=== PATIENT | male | born 1990 | race Caucasian/White ===

== ENCOUNTER 2021-06-29 20:43 | Emergency (ER) | payer OTHER ==
[~2021-06-29] VITALS: Ht 180.3 cm; Wt 140.6 kg
[2021-06-29 20:50] VITALS: BP_SYST 139
[2021-06-29] MEDS ORDERED: IBUP-1969 PO ×2 (22:48)
[2021-06-29] MEDS ORDERED: HYDR-3927 PO ×2 (22:48)
[2021-06-29 23:00] VITALS: BP_SYST 136
[2021-06-30] MEDS ORDERED: HYDR-3927 PO (11:10)
[2021-06-30] MEDS ORDERED: IBUP-1969 PO (11:10)
== END 2021-06-29 23:00 | disposition home or self-care (01) ==
LOC: SED 20:43
DX: S22.31XA Fracture of one rib, right side, initial encounter for closed fracture (principal); M25.512 Pain in left shoulder; Z79.899 Other long term (current) drug therapy; V49.59XA Passenger injured in collision with other motor vehicles in traffic accident, initial encounter; Y93.89 Activity, other specified; Y92.89 Other specified places as the place of occurrence of the external cause; Y99.8 Other external cause status
CPT/HCPCS: 71045; 99283